=== PATIENT | female | born 1955 | race African-American/Black ===

== ENCOUNTER 2017-04-04 11:00 | Emergency (ER) | payer OTHER ==
[~2017-04-04] VITALS: Ht 160 cm; Wt 59.0 kg
[~2017-04-04 11:00] MED LIST: CENTRUM COMPLE1 EAC1 PO; FLONASE1 SPRAYS; LISINOPRIL10 MG ORAL; PHENERGAN/CODE120 ML PO
[2017-04-04 11:25] VITALS: BP 143/62
[2017-04-04] MEDS ORDERED: Albuterol ud Inhalation HHN ONE (11:45)
--- NOTE | 2017-04-04 11:47 | Emergency Room Report ---
History of Present Illness General Chief Complaint: Flu Like Symptoms Source: Patient Present Illness HPI The patient presents with 2 weeks of congestion and wheezing. Her cough produces some phlegm. She has a slight headache with this. No ear pain. No chest pain. The patient smokes cannabis. The patient is a brace on her right leg. The patient has been treated for hepatitis C and has been cured. Her doctors said that she cannot take any nonsteroidal anti-inflammatories or Tylenol. Alleges allergy to Vicodin in the past. No rashes, NVD, dysuria, joint pain. Allergies: Coded Allergies: HYDROCODONE (Verified Allergy, Severe, nausea, vomiting, 11/18/12) Uncoded Allergies: VICODINE(HYDROCODONE-ACETAMINOPHEN) (Allergy, Unknown, NAUSEA AND VOMITING , 09/20/15) ONSET 08/30/2012 Patient History Past Medical History: see triage record Social History: Reports: drug use - THC, Denies: smoking, alcohol use Social History Narrative with Niece Reviewed Nursing Documentation: PMH: Agreed, PSxH: Agreed Nursing Documentation-PMH Hx Cardiac Problems: Yes Hx Hypertension: Yes Hx Cancer: No Hx Gastrointestinal Problems: Yes - LIVER BIOPSY 1 WEEK AGO hep c Hx Neurological Problems: No Review of Systems All Other Systems: negative except mentioned in HPI Physical Exam Vital Signs Date Time Temp Pulse Resp B/P (MAP) Pulse Ox O2 Delivery O2 Flow Rate FiO2 04/04/17 11:12 97.6 70 20 143/62 96 Room Air 97.5 Sp02 EP Interpretation: reviewed, normal General Appearance: well appearing, no apparent distress, GCS 15 Head: normocephalic Eyes: bilateral eye normal inspection, bilateral eye PERRL ENT: moist mucus membranes Neck: supple Respiratory: lungs clear, normal breath sounds, other - inc exp phase minimally Cardiovascular #1: regular rate, rhythm Cardiovascular #2: 2+ radial (R) Gastrointestinal: normal inspection, normal bowel sounds, non tender, no mass, non-distended Musculoskeletal: back normal, gait/station normal, normal range of motion, no calf tenderness Neurologic: alert, oriented x3, motor strength/tone normal, DTRs symmetric, sensory intact, speech normal, other - R leg brace Skin: normal inspection, warm/dry Medical Decision Making Diagnostic Impression: Primary Impression: Bronchospasm Additional Impression: URI (upper respiratory infection) Qualified Codes: J06.9 - Acute upper respiratory infection, unspecified ER Course Patient presents with URI sy and wheezing (according to her). DDx: asthma, sinusitis, bronchitis, viral syndrome. Low risk factors for ACS, CAD. Requests treatment with albuterol. Long discussion of tylenol - ordered. No imaging or labs indicated (not toxic, katherin PO, no major co-morbidities).. (Convinced not to take tylenol.) Improved with treatment .Patient stable for outpatient observation and treatment. Last Vital Signs Date Time Temp Pulse Resp B/P (MAP) Pulse Ox O2 Delivery O2 Flow Rate FiO2 04/04/17 12:58 97.6 70 16 143/62 98 Room Air 21 97.5 Status: improved Disposition: HOME, SELF-CARE Condition: Improved Scripts Albuterol Sulfate* (ALBUTEROL SULFATE MDI*) 8.5 Gm Hfa.aer.ad 2 PUFF INH Q6H, #1 EA 0 Refills Prov: Eron Lazaro M.D. 04/04/17 Guaifenesin/Codeine Phos* (ROBITUSSIN AC*) 118 Ml Liquid 5 ML ORAL Q6H Y for For Cough, #90 ML 0 Refills Prov: Eron Lazaro M.D. 04/04/17 Chlorpheniramine Maleate (CHLOR-TRIMETON) 4 Mg Tablet 4 MG PO Q6HR Y for congestion, #16 TAB Prov: Eron Lazaro M.D. 04/04/17 Referrals: MARANDA,REFERRING (PCP) Eron Lazaro M.D. Apr 04, 2017 11:47
[2017-04-04] MEDS ORDERED: ALBUTEROL SULF8.5 GM INH (12:47)
[2017-04-04] MEDS ORDERED: GUAIFENESIN-CO118 M1 ORAL (12:47)
[2017-04-04] MEDS ORDERED: CHLOR-TRIMETON4 MG PO (12:47)
[2017-04-04 12:58] VITALS: BP 143/62
== END 2017-04-04 13:00 | disposition home or self-care (01) ==
LOC: EMR 11:30
DX: J98.01 Acute bronchospasm (principal); Z88.6 Allergy status to analgesic agent; I10 Essential (primary) hypertension; J06.9 Acute upper respiratory infection, unspecified
CPT/HCPCS: 94640; 94664; 99284